=== PATIENT | female | born 1985 | race American Indian/Alaskan Native ===

== ENCOUNTER 2019-02-08 10:49 | Outpatient (CLI) | payer BC, MEDICAID ==
--- NOTE | 2019-02-08 12:07 | Ultrasound Report ---
ULTRASOUND BIOPHYSICAL PROFILE ULTRASOUND BIOPHYSICAL PROFILE ADD GESTATION INDICATION: non-reassuring tracing. Twin gestation. COMPARISON: None available. FINDINGS: FETUS A heart rate is 135 beats per minute. breathing movement = 2 Gross body movement = 2 tone = 2 Qualitative amniotic fluid volume = 2 biophysical profile = 11/11 FETUS B heart rate is 148 beats per minute. breathing movement = 2 Gross body movement = 2 tone = 2 Qualitative amniotic fluid volume = 2 biophysical profile = 11/11 Signer Name: Fer Moss Jr, MD Signed: 02/08/2019 12:03 PM Workstation Name: [id number]
[2019-02-08 12:12] VITALS: BP 135/81
== END 2019-02-08 13:06 | disposition home or self-care (01) ==
LOC: TRG 10:49
PROVIDERS: ATTEND Obstetrics & Gynecology
DX: O36.8330 Maternal care for abnormalities of the fetal heart rate or rhythm, third trimester, not applicable or unspecified (principal); O30.003 Twin pregnancy, unspecified number of placenta and unspecified number of amniotic sacs, third trimester; Z3A.32 32 weeks gestation of pregnancy
CPT/HCPCS: 76819

== ENCOUNTER 2019-02-18 23:23 | Outpatient (CLI) | payer BC, MEDICAID ==
[2019-02-19] MEDS ORDERED: LACTATED RINGERS 500 ML IV ONE (00:25)
[2019-02-19 00:53] LABS: Bacteria,Urine 2+ /HPF (Negative); Bilirubin,Urine NEG (Negative); Blood,Urine NEG (Negative); Color,Urine Yellow (Yellow); Hyaline Casts,Urine 3 /LPF; Protein,Urine <15 mg/dL mg/dL (Negative); Urobilinogen,Urine < 2.0 mg/dL (<2.0)
[2019-02-19 01:07] VITALS: BP 138/64
== END 2019-02-19 01:30 | disposition home or self-care (01) ==
LOC: TRG 23:23
PROVIDERS: ATTEND Obstetrics & Gynecology
DX: O47.03 False labor before 37 completed weeks of gestation, third trimester (principal); O30.003 Twin pregnancy, unspecified number of placenta and unspecified number of amniotic sacs, third trimester; O26.893 Other specified pregnancy related conditions, third trimester; R60.0 Localized edema; Z3A.34 34 weeks gestation of pregnancy
CPT/HCPCS: 59025; 81001; J7120

== ENCOUNTER 2019-03-01 16:21 | Inpatient (IN) | payer BC, MEDICAID ==
[2019-03-01] MEDS ORDERED: ONDANSETRON 4 MG/2 ML INJ IV PRN (16:43)
[2019-03-01] MEDS ORDERED: SODIUM CHLORIDE NASAL SPRAY 44ML NS PRN (16:43)
[2019-03-01] MEDS ORDERED: DOCUSATE SODIUM 100 MG CAP PO PRN (16:43)
[2019-03-01] MEDS ORDERED: ACETAMINOPHEN 325 MG TAB PO PRN (16:43)
--- NOTE | 2019-03-01 16:57 | History and Physical Report ---
History of Present Illness Date of examination: 03/01/19 (Sent from office for 24hr collection) Date of admission: 03/01/2019 Chief complaint: Sent from office History of present illness: EDC Confirmation: 03/30/2019 Gestational Age: 12 5/7 weeks Past History : 2 Living Children: 0 Elect. 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 of genital herpes: yes Rash, Viral, or Febrile illness since last LMP? no Varicella/Chicken Pox Status: Previous Disease Genetic History Congenital Heart Defect: Mom: no Dad: unknown Fareed Disease: Mom: no Dad: unknown Thalassemia Mom: no Dad: unknown Neural Tube Defect Mom: no Dad: unknown Down's Syndrome Mom: no Dad: unknown Eliezer-Sachs Mom: no Dad: unknown Sickle Cell Disease/Trait Mom: yes Dad: unknown Hemophilia Mom: no Dad: unknown Muscular Dystrophy Mom: no Dad: unknown Cystic Fibrosis Mom: no Dad: unknown [place] Chorea Mom: no Dad: unknown Mental Retardation Mom: no Dad: unknown Fragile X Mom: no Dad: unknown Other Genetic/Chromosomal Disorder Mom: no Dad: unknown Child w/other defect Mom: no Dad: unknown Enviromental Exposures Xray Exposure: no Medication, drug, or alcohol use since LMP: no Chemical/Other Exposure: no Exposure to Cat Liter: no Hx of Parvovirus (Fifth Disease): no Occupational Exposure to Children: none Active Medications (reviewed today): PNV () Current Allergies (reviewed today): No known allergies Past History - Obstetrical History Expected Date of Delivery: 03/30/19 Actual Gestation: 35 Week(s) 6 Day(s) : 2 Para: 0 Hx # Term Pregnancies: 0 Number of Pregnancies: 0 Spontaneous Abortions: 0 Induced : 1 Number of Living Children: 0 Medications and Allergies Allergies Allergy/AdvReac Type Severity Reaction Status Date / Time No Known Allergies Allergy Verified 02/08/19 10:54 Home Medications Medication Instructions Recorded Confirmed Last Taken Type Aspirin [Adult Aspirin] 1 tab PO DAILY 02/19/19 02/19/19 02/18/19 History Ferrous Sulfate [Iron 325 MG] 1 tab PO DAILY 02/19/19 02/19/19 02/18/19 History Vit-Fe Fumar-FA [ 1 tab PO DAILY 02/19/19 02/19/19 02/18/19 History Vitamin] Active Meds: Active Medications Acetaminophen (Tylenol) 650 mg PO Q4H PRN PRN Reason: Pain MILD(1-3)/Fever >100.5/BUCK Docusate Sodium (Colace) 100 mg PO Q12H PRN PRN Reason: Constipation Lactated Ringer's (Lactated Ringers) 1,000 mls @ 125 mls/hr IV DIRECT ESTHER Multivitamins/Iron/Calcium ( Vitamin) 1 each PO QDAY ESTHER Ondansetron HCl (Zofran) 4 mg IV Q6H PRN PRN Reason: Nausea And Vomiting Sodium Chloride (Deep Sea) 2 spray NS Q4H PRN PRN Reason: Congestion - Physical Exam Breasts: Positive: deferred Cardiovascular: Regular rate, Normal S1, Normal S2 Lungs: Positive: Normal air movement Abdomen: Positive: normal appearance, soft, normal bowel sounds. Negative: distention, tenderness Genitourinary (Female): Positive: normal external genitalia Vulva: both: normal Vagina: Positive: normal moisture. Negative: discharge Cervix: Negative: lesion, discharge Uterus: Positive: normal size, normal contour Adnexa: both: normal Anus/Rectum: Positive: normal perianal skin, heme negative. Negative: rectal mass, hemorrhoids Extremities: Positive: edema Deep Tendon Reflex Grade: Normal +2 - Obstetrical FHR: auscultation normal Uterine Contraction Pattern: Absent Uterine Tone Measurement Phase: Resting Results All other labs normal. GBS collected today 03/01 HBsAg Screen Negative Negative *1 RPR Non Reactive Non Reactive *2 Rubella Antibodies, IgG 1.87 index Immune >0.99 *3 Non-immune <0.90 Equivocal 0.90 - 0.99 Immune >0.99 ABO Grouping A *4 Rh Factor Positive *5 Please note: Prior records for this patient's ABO / Rh type are not available for additional verification. Antibody Screen Negative Negative *6 WBC [H] 11.3 x10E3/uL 3.4-10.8 *7 RBC 3.87 x10E6/uL 3.77-5.28 *8 Hemoglobin [L] 9.3 g/dL 11.1-15.9 *9 Hematocrit [L] 29.0 % 34.0-46.6 *10 MCV [L] 75 fL 79-97 *11 MCH [L] 24.0 pg 26.6-33.0 *12 MCHC 32.1 g/dL 31.5-35.7 *13 RDW [H] 17.5 % 12.3-15.4 *14 Platelets 303 x10E3/uL 150-450 *15 Neutrophils 80 % Not Estab. *16 Lymphs 15 % Not Estab. *17 Monocytes 5 % Not Estab. *18 Eos 0 % Not Estab. *19 Basos 0 % Not Estab. *20 ! Immature Cells <No Reported Value> *21 Neutrophils (Absolute) [H] 9.0 x10E3/uL 1.4-7.0 *22 Lymphs (Absolute) 1.7 x10E3/uL 0.7-3.1 *23 Monocytes(Absolute) 0.6 x10E3/uL 0.1-0.9 *24 Eos (Absolute) 0.0 x10E3/uL 0.0-0.4 *25 Baso (Absolute) 0.0 x10E3/uL 0.0-0.2 *26 ! Immature Granulocytes 0 % Not Estab. *27 ! Immature Grans (Abs) 0.0 x10E3/uL 0.0-0.1 *28 ! NRBC <No Reported Value> *29 Hematology Comments: <No Reported Value> *30 Tests: (2) Panel 617020 ([id number]) HIV Screen 4th Generation wRfx Non Reactive Non Reactive *31 Tests: (3) HCV Ab w/Rflx to Verification (911125) ! HCV Ab <0.1 s/co ratio 0.0-0.9 *32 Tests: (4) Comment: (191100) ! Comment: SPRCS *33 Non reactive HCV antibody screen is consistent with no HCV infection, unless recent infection is suspected or other evidence exists to indicate HCV infection. Tests: (5) Urine Culture, Routine ([id number]) Urine Culture, Routine Final report *34 Tests: (6) Result ([id number]) ! Result 1 MUG *35 Mixed urogenital edwar 25,000-50,000 colony forming units per mL Assessment and Plan 33 y.o at 35 weeks with Rhoda twins, with elevated BPs, 150/80 in office and in [facility] office, told at visit that babies were vtx/vtx. 24 hour urine collection started, pt is HSV2 +, valtrex started. Will plan BMZ if BPs continue elevated. Dr. Lafleur aware of admission. GBS done in office today. All orders in EMR. - Patient Problems (1) Herpes genitalis Onset Date: ~03/01/19 Current Visit: Yes Status: Acute Qualifiers: Herpes simplex infection site: vulvovaginitis Qualified Code(s): A60.04 - Herpesviral vulvovaginitis Plan to address problem: Will plan to Valacyclovir 1gm today, No obvious outbreaks seen and no symptoms expressed by patient. (2) Elevated blood pressure affecting in third trimester, antepartum Onset Date: ~03/01/19 Current Visit: Yes Status: Acute Plan to address problem: Pt sent from office, [facility] labs ordered, will monitor BPs (3) Dichorionic diamniotic twin in third trimester Onset Date: ~03/01/19 Current Visit: Yes Status: Acute Plan to address problem: Continous monitoring vtx/vtx on today's u/s with [facility].
[2019-03-01] MEDS ORDERED: LACTATED RINGERS 1,000 ML IV SCH (17:00)
[2019-03-01] MEDS: valACYclovir 500 MG TAB PO SCH (18:42)
[2019-03-01 19:10] LABS: Basophils % (Auto) 0.3 % (0.0-1.8); Eosinophils % (Auto) 0.4 % (0.0-4.3); Hematocrit 31.5 % (30.3-42.9); Hemoglobin 10.1 gm/dl (10.1-14.3); Lymphocytes # (Auto) 1.9 K/mm3 (1.2-5.4); Lymphocytes % (Auto) 17.9 % (13.4-35.0); Mean Corpuscular HGB Conc 32 % (30-34); Mean Corpuscular Volume 83 fl (79-97); Monocytes # (Auto) 0.5 K/mm3 (0.0-0.8); Monocytes % (Auto) 4.5 % (0.0-7.3); Platelet Count 211 K/mm3 (140-440); Red Cell Distribution Width 16.8 % (13.2-15.2)
[2019-03-01 19:23] LABS: Alanine Aminotransferase 8 units/L (7-56); Albumin 3.4 g/dL (3.9-5); BUN/Creatinine Ratio 7; Blood Urea Nitrogen 4 mg/dL (7-17); Calcium 9.1 mg/dL (8.4-10.2); Hemolysis Index 2; Uric Acid 6.4 mg/dL (3.5-7.6)
[2019-03-01] MEDS ORDERED: ZOLPIDEM 5 MG TAB PO ONE ×2 (20:22→22:00)
[2019-03-01 21:13] LABS: Bacteria,Urine 1+ /HPF (Negative); Bilirubin,Urine NEG (Negative); Blood,Urine NEG (Negative); Color,Urine Yellow (Yellow); Protein,Urine <15 mg/dL mg/dL (Negative); Urobilinogen,Urine < 2.0 mg/dL (<2.0)
--- NOTE | 2019-03-02 04:28 | Event Note ---
Date: 03/02/19 Pt has had elevated blood pressures since admission and some in the sever range. Will start magnesium sulfate at this time and administer BMZ.
--- NOTE | 2019-03-02 04:36 | Event Note ---
Date: 03/02/19 Spoke with RN that states cuff was changed and the more elevated pressures were prior to changing the cuff. Still advised that bps are still elevated and will start both magnesium and give steroids at this time. She expressed understanding and acknowledged the orders being given.
[2019-03-02] MEDS ORDERED: MAGNESIUM SULFATE 40GM/1000ML 40 GM/1,000 ML BAG IV SCH (05:00)
[2019-03-02] MEDS ORDERED: BETAMET ACET/BETAMET NA PH 6 MG/ML INJ 5 ML MDV IM SCH (05:00)
--- NOTE | 2019-03-02 06:00 | Progress Note ---
Assessment and Plan Pt started on MGSO4 per Dr Lafleur's order BP have been labile with one 160/100. 24 hour urine ongoing Pt c/o pain in vagina Assessment appears to be suprapubic stretching SVE 2,80,-2. Pt anxious @ [facility]. Discussed with her the rationale of accurate urine output She agrees to placement. Will continue POC, follow BPs closely. Consult with . - Patient Problems (1) Herpes genitalis Onset Date: ~03/01/19 Current Visit: Yes Status: Acute Qualifiers: Herpes simplex infection site: vulvovaginitis Qualified Code(s): A60.04 - Herpesviral vulvovaginitis (2) Elevated blood pressure affecting in third trimester, antepartum Onset Date: ~03/01/19 Current Visit: Yes Status: Acute (3) Dichorionic diamniotic twin in third trimester Onset Date: ~03/01/19 Current Visit: Yes Status: Acute Subjective - Subjective Date of service: 03/02/19 (Pt now on MGSO4) Principal diagnosis: IUP Di/Di twins @ 36w0d; 24hr urine in progress, MGSO4 @ 2gm/hr Interval history: EDC Confirmation: 03/30/2019 Gestational Age: 12 5/7 weeks Past History : 2 Living Children: 0 Elect. Ab: 1 Past Medical History: Negative Past Medical History Past Surgical History: Negative Past Surgical History: sickle cell trait Past Medical History Surgery (Non-manager internal): Negative Past Surgical History: sickle cell trait Abnormal PAP: negative DYLAN Exposure: negative Infertility: negative Uterine Anomaly: negative Uterine Surgery (not C/S): negative Other Gynecologic Problems: negative Medical History Comments: neg Family Hx: HTN Kidney dz Social Hx: single foc unsure about his involment Infection History Hx of STD: HSV I/II Partner hx. of genital herpes: yes Rash, Viral, or Febrile illness since last LMP? no Varicella/Chicken Pox Status: Previous Disease Genetic History Congenital Heart Defect: Mom: no Dad: unknown Fareed Disease: Mom: no Dad: unknown Thalassemia Mom: no Dad: unknown Neural Tube Defect Mom: no Dad: unknown Down's Syndrome Mom: no Dad: unknown Eliezer-Sachs Mom: no Dad: unknown Sickle Cell Disease/Trait Mom: yes Dad: unknown Hemophilia Mom: no Dad: unknown Muscular Dystrophy Mom: no Dad: unknown Cystic Fibrosis Mom: no Dad: unknown [place] Chorea Mom: no Dad: unknown Mental Retardation Mom: no Dad: unknown Fragile X Mom: no Dad: unknown Other Genetic/Chromosomal Disorder Mom: no Dad: unknown Child w/other defect Mom: no Dad: unknown Enviromental Exposures Xray Exposure: no Medication, drug, or alcohol use since LMP: no Chemical/Other Exposure: no Exposure to Cat Liter: no Hx of Parvovirus (Fifth Disease): no Occupational Exposure to Children: none Active Medications (reviewed today): PNV () Current Allergies (reviewed today): No known allergies Patient reports: movement normal Objective - Vital Signs Vital Signs: Vital Signs - 12hr 03/01/19 03/01/19 03/01/19 18:32 18:46 19:00 Temperature Pulse Rate 81 88 83 Respiratory Rate Blood Pressure 146/99 156/84 159/85 Blood Pressure [Left] 03/01/19 03/01/19 03/01/19 19:15 19:30 19:31 Temperature 98.2 F Pulse Rate 96 H 85 85 Respiratory 16 Rate Blood Pressure 156/85 177/81 Blood Pressure 177/81 [Left] 03/01/19 03/01/19 03/01/19 20:08 20:39 21:08 Temperature Pulse Rate 84 84 88 Respiratory 16 Rate Blood Pressure 139/91 167/112 139/72 Blood Pressure 139/91 [Left] 03/01/19 03/01/19 03/01/19 21:39 22:10 22:40 Temperature Pulse Rate 101 H 96 H 108 H Respiratory Rate Blood Pressure 149/75 146/86 168/84 Blood Pressure [Left] 03/01/19 03/01/19 03/01/19 23:09 23:39 23:44 Temperature Pulse Rate 96 H 99 H 105 H Respiratory Rate Blood Pressure 132/78 159/85 139/66 Blood Pressure [Left] 03/01/19 03/02/19 03/02/19 23:45 00:08 00:38 Temperature Pulse Rate 100 H 102 H 100 H Respiratory 16 16 Rate Blood Pressure 137/84 144/75 Blood Pressure 139/66 144/75 [Left] 03/02/19 03/02/19 03/02/19 03:35 04:44 05:49 Temperature 98.2 F Pulse Rate 114 H 88 Respiratory 16 16 16 Rate Blood Pressure 144/70 136/72 Blood Pressure 144/70 136/72 [Left] - Exam Breasts: deferred Cardiovascular: Regular rate Lungs: Normal air movement Abdomen: Present: normal appearance, soft, normal bowel sounds. Absent: distention, tenderness Vulva: both: normal (pain pt is c/o appears to be pubic stretching) Uterus: Present: normal FHR: auscultation normal, category 1 Uterine Contraction Monitor Mode: External Cervical Dilatation: 2 Cervical Effacement Percentage: 80 station: -2 Uterine Contraction Pattern: Irregular Uterine Tone Measurement Phase: Resting Uterine Contraction Intensity: Mild Extremities: edema Deep Tendon Reflex Grade: Normal but brisk +3 - Labs Labs: Abnormal Labs 03/01/19 03/01/19 18:32 18:32 MCH 27 L RDW 16.8 H Seg Neutrophils % 76.9 H Seg Neutrophils # 8.2 H Carbon Dioxide 16 L BUN 4 L Creatinine 0.6 L Alkaline Phosphatase 150 H Lactate Dehydrogenase 308 H Albumin 3.4 L Laboratory Results - last 24 hr 03/01/19 03/01/19 03/01/19 18:32 18:32 18:36 WBC 10.6 RBC 3.80 Hgb 10.1 Hct 31.5 MCV 83 MCH 27 L MCHC 32 RDW 16.8 H Plt Count 211 Lymph % (Auto) 17.9 [place] % (Auto) 4.5 Eos % (Auto) 0.4 Baso % (Auto) 0.3 Lymph # 1.9 [place] # 0.5 Eos # 0.0 Baso # 0.0 Seg Neutrophils % 76.9 H Seg Neutrophils # 8.2 H Sodium 141 Potassium 3.8 Chloride 106.5 Carbon Dioxide 16 L Anion Gap 22 BUN 4 L Creatinine 0.6 L Estimated GFR > 60 BUN/Creatinine Ratio 7 Glucose 73 Uric Acid 6.4 Calcium 9.1 Total Bilirubin 0.70 AST 22 ALT 8 Alkaline Phosphatase 150 H Lactate Dehydrogenase 308 H Total Protein 6.8 Albumin 3.4 L Albumin/Globulin Ratio 1.0 Urine Color Urine Turbidity Urine pH Ur Specific [place] Urine Protein Urine Glucose (UA) Urine Ketones Urine Blood Urine Nitrite Urine Bilirubin Urine Urobilinogen Ur Leukocyte Esterase Urine WBC (Auto) Urine RBC (Auto) U Epithel Cells (Auto) Urine Bacteria (Auto) Blood Type A POSITIVE Antibody Screen Negative 03/01/19 20:30 WBC RBC Hgb Hct MCV MCH MCHC RDW Plt Count Lymph % (Auto) [place] % (Auto) Eos % (Auto) Baso % (Auto) Lymph # [place] # Eos # Baso # Seg Neutrophils % Seg Neutrophils # Sodium Potassium Chloride Carbon Dioxide Anion Gap BUN Creatinine Estimated GFR BUN/Creatinine Ratio Glucose Uric Acid Calcium Total Bilirubin AST ALT Alkaline Phosphatase Lactate Dehydrogenase Total Protein Albumin Albumin/Globulin Ratio Urine Color Yellow Urine Turbidity Clear Urine pH 6.0 Ur Specific [place] 1.006 Urine Protein <15 mg/dl Urine Glucose (UA) Neg Urine Ketones 20 Urine Blood Neg Urine Nitrite Neg Urine Bilirubin Neg Urine Urobilinogen < 2.0 Ur Leukocyte Esterase Sm Urine WBC (Auto) 4.0 Urine RBC (Auto) 3.0 U Epithel Cells (Auto) 2.0 Urine Bacteria (Auto) 1+ Blood Type Antibody Screen
[2019-03-02] MEDS ORDERED: ACETAMINOPHEN 325 MG TAB PO PRN (07:49)
--- NOTE | 2019-03-02 07:58 | Progress Note ---
Assessment and Plan - Patient Problems (1) 36 weeks gestation of Current Visit: Yes Status: Acute (2) Preeclampsia, severe Current Visit: Yes Status: Acute Qualifiers: Trimester: third trimester Qualified Code(s): O14.13 - Severe pre- eclampsia, third trimester Plan to address problem: Patient states she was diagnosed with preeclampsia last week, now with two elevated BP in severe range >4 hours apart. Therefore will proceed with induction for Preeclampsia with severe features. Diagnosis discussed with patient, plan for induction explained. She's aware she may require emergent/urgent c/s if second baby becomes malpresented not conducive to vaginal delivery. Questions encouraged and answered, she voiced understanding and agrees with plan of care. nurse ortho aware (3) BMI 45.0-49.9, adult Current Visit: Yes Status: Chronic (4) Dichorionic diamniotic twin in third trimester Onset Date: ~03/01/19 Current Visit: Yes Status: Acute (5) Herpes genitalis Onset Date: ~03/01/19 Current Visit: Yes Status: Acute Qualifiers: Herpes simplex infection site: vulvovaginitis Qualified Code(s): A60.04 - Herpesviral vulvovaginitis Plan to address problem: Patient denies recent outbreak or prodromal symptoms. No lesions on or near perineal per CNM, will proceed with IOL Subjective - Subjective Date of service: 03/02/19 Principal diagnosis: IUP Di/Di twins @ 36w0d; MGSO4 @ 2gm/hr Interval history: resting in bed, no complaints Patient reports: movement normal, no new complaints Objective - Vital Signs Vital Signs: Vital Signs - 12hr 03/01/19 03/01/19 03/01/19 20:08 20:39 21:08 Temperature Pulse Rate 84 84 88 Respiratory 16 Rate Blood Pressure 139/91 167/112 139/72 Blood Pressure 139/91 [Left] 03/01/19 03/01/19 03/01/19 21:39 22:10 22:40 Temperature Pulse Rate 101 H 96 H 108 H Respiratory Rate Blood Pressure 149/75 146/86 168/84 Blood Pressure [Left] 03/01/19 03/01/19 03/01/19 23:09 23:39 23:44 Temperature Pulse Rate 96 H 99 H 105 H Respiratory Rate Blood Pressure 132/78 159/85 139/66 Blood Pressure [Left] 03/01/19 03/02/19 03/02/19 23:45 00:08 00:38 Temperature Pulse Rate 100 H 102 H 100 H Respiratory 16 16 Rate Blood Pressure 137/84 144/75 Blood Pressure 139/66 144/75 [Left] 03/02/19 03/02/19 03/02/19 03:35 04:44 05:49 Temperature 98.2 F Pulse Rate 114 H 88 Respiratory 16 16 16 Rate Blood Pressure 144/70 136/72 Blood Pressure 144/70 136/72 [Left] - Exam Breasts: deferred Cardiovascular: Regular rate Lungs: Clear to auscultation, Normal air movement Abdomen: Present: other (obese). Absent: tenderness Uterus: Present: fundal height above umbilicus. Absent: tenderness FHR: category 1 (x2) Uterine Contraction Monitor Mode: External Cervical Dilatation: 2 Cervical Effacement Percentage: 80 station: -2, per CNM, no lesions report Uterine Contraction Pattern: Absent Extremities: edema (2+) Deep Tendon Reflex Grade: Normal +2 - Labs Labs: Abnormal Labs 03/01/19 03/01/19 18:32 18:32 MCH 27 L RDW 16.8 H Seg Neutrophils % 76.9 H Seg Neutrophils # 8.2 H Carbon Dioxide 16 L BUN 4 L Creatinine 0.6 L Alkaline Phosphatase 150 H Lactate Dehydrogenase 308 H Albumin 3.4 L Laboratory Results - last 24 hr 03/01/19 03/01/19 03/01/19 18:32 18:32 18:36 WBC 10.6 RBC 3.80 Hgb 10.1 Hct 31.5 MCV 83 MCH 27 L MCHC 32 RDW 16.8 H Plt Count 211 Lymph % (Auto) 17.9 [place] % (Auto) 4.5 Eos % (Auto) 0.4 Baso % (Auto) 0.3 Lymph # 1.9 [place] # 0.5 Eos # 0.0 Baso # 0.0 Seg Neutrophils % 76.9 H Seg Neutrophils # 8.2 H Sodium 141 Potassium 3.8 Chloride 106.5 Carbon Dioxide 16 L Anion Gap 22 BUN 4 L Creatinine 0.6 L Estimated GFR > 60 BUN/Creatinine Ratio 7 Glucose 73 Uric Acid 6.4 Calcium 9.1 Total Bilirubin 0.70 AST 22 ALT 8 Alkaline Phosphatase 150 H Lactate Dehydrogenase 308 H Total Protein 6.8 Albumin 3.4 L Albumin/Globulin Ratio 1.0 Urine Color Urine Turbidity Urine pH Ur Specific [place] Urine Protein Urine Glucose (UA) Urine Ketones Urine Blood Urine Nitrite Urine Bilirubin Urine Urobilinogen Ur Leukocyte Esterase Urine WBC (Auto) Urine RBC (Auto) U Epithel Cells (Auto) Urine Bacteria (Auto) Blood Type A POSITIVE Antibody Screen Negative 03/01/19 20:30 WBC RBC Hgb Hct MCV MCH MCHC RDW Plt Count Lymph % (Auto) [place] % (Auto) Eos % (Auto) Baso % (Auto) Lymph # [place] # Eos # Baso # Seg Neutrophils % Seg Neutrophils # Sodium Potassium Chloride Carbon Dioxide Anion Gap BUN Creatinine Estimated GFR BUN/Creatinine Ratio Glucose Uric Acid Calcium Total Bilirubin AST ALT Alkaline Phosphatase Lactate Dehydrogenase Total Protein Albumin Albumin/Globulin Ratio Urine Color Yellow Urine Turbidity Clear Urine pH 6.0 Ur Specific [place] 1.006 Urine Protein <15 mg/dl Urine Glucose (UA) Neg Urine Ketones 20 Urine Blood Neg Urine Nitrite Neg Urine Bilirubin Neg Urine Urobilinogen < 2.0 Ur Leukocyte Esterase Sm Urine WBC (Auto) 4.0 Urine RBC (Auto) 3.0 U Epithel Cells (Auto) 2.0 Urine Bacteria (Auto) 1+ Blood Type Antibody Screen
[2019-03-02] MEDS ORDERED: LACTATED RINGERS 1,000 ML IV SCH ×3 (08:00→15:00)
[2019-03-02] MEDS ORDERED: OXYTOCIN DRIP 30 UNITS/500 ML BAG IV SCH (08:00)
[2019-03-02] MEDS ORDERED: TERBUTALINE 1 MG/1 ML INJ SUB-Q PRN (08:06)
[2019-03-02] MEDS ORDERED: TERBUTALINE 1 MG/1 ML INJ IVP PRN (08:06)
[2019-03-02] MEDS ORDERED: BUTORPHANOL 2 MG/1 ML INJ IV PRN (08:06)
[2019-03-02] MEDS ORDERED: ePHEDrine SULFATE 50 MG/1 ML INJ IV PRN (08:06)
[2019-03-02] MEDS ORDERED: AMPICILLIN/NS 2 GM/100 ML 2 GM/100 ML BAG IV ONE (08:06)
[2019-03-02] MEDS ORDERED: OXYTOCIN 20 UNIT/1000ML DRIP 20 UNITS/1,000 ML BAG IV SCH ×3 (09:00→17:00)
[2019-03-02] MEDS ORDERED: LIDOCAINE (2%) 20 MG/1 ML VIAL 20 ML MDV INFILTRATI ONE (09:30)
[2019-03-02] MEDS ORDERED: ASPIRIN 81 MG TAB CHEW PO SCH (10:00)
[2019-03-02] MEDS: PRENATAL VIT27-FE FUMARATE-FOLIC ACID VIT TAB PO SCH (10:06)
--- NOTE | 2019-03-02 12:03 | Event Note ---
Date: 03/02/19 US reviewed, Twin B transverse spine anterior, patient states Twin B was in this same position when she had an US prior to this the one performed yesterday. Again discussed malpresentation of Twin B and concern for ?cord prolapse or failure to descend or breech presentation with possible head entrapment with delivery. C/S with risks of bleeding, infection, injury to bowel/bladder and possible need for c/s with all subsequent deliveries explained. She voiced understanding and desires to proceed with c/s. Consents reviewed and signed.
[2019-03-02] MEDS: valACYclovir 500 MG TAB PO SCH (12:35)
--- NOTE | 2019-03-02 12:39 | Ultrasound Report ---
ULTRASOUND OBSTETRIC LIMITED INDICATION / CLINICAL INFORMATION: twins, preeclampsia, presentation. TECHNIQUE: Transabdominal ultrasound imaging. COMPARISON: None available. FINDINGS: Baby A is in cephalic position with heart rate measuring 151 bpm. Baby B is in transverse position with head to maternal left and heart rate measuring 161 bpm. The spi ne is positioned anteriorly. IMPRESSION: Twin presentation as described. Signer Name: Fer Moss Jr, MD Signed: 03/02/2019 12:35 PM Workstation Name: [id number]
[2019-03-02] MEDS: AMPICILLIN/NS 1 GM/50 ML 1 GM/50 ML BAG IV SCH ×2 (12:52→13:46)
[2019-03-02] MEDS ORDERED: hydrALAZINE 20 MG/1 ML INJ IV PRN (13:36)
[2019-03-02] MEDS ORDERED: BICITRA ORAL LIQD 30ML PO SCH (14:42)
[2019-03-02] MEDS ORDERED: FAMOTIDINE 20 MG/2 ML INJ IV ONE (14:42)
[2019-03-02] MEDS ORDERED: ONDANSETRON 4 MG/2 ML INJ ONE (15:30)
[2019-03-02] MEDS ORDERED: KETOROLAC 30 MG/1 ML INJ ONE (15:30)
[2019-03-02] MEDS ORDERED: PHENYLEPHRINE/NS 1,000 MCG/10 ML SYRINGE (OR USE) IV ONE (15:30)
--- NOTE | 2019-03-02 15:35 | Anesthesia Day of Surgery ---
Anesthesia Day of Surgery - Day of Surgery Patient Examined: Yes Patient H&P Reviewed: Yes Patient is NPO: Yes
--- NOTE | 2019-03-02 15:35 | Anesthesia Consultation ---
Anesthesia Consult and Med Hx Date of service: 03/02/19 - Airway Anesthetic Teeth Evaluation: Good ROM Head & Neck: Adequate Mental/Hyoid Distance: Adequate Mallampati Class: Class II Intubation Access Assessment: Probably Good - Pulmonary Exam CTA: Yes - Cardiac Exam Cardiac Exam: RRR - Pre-Operative Health Status ASA Pre-Surgery Classification: ASA3 Proposed Anesthetic Plan: Spinal - Pulmonary Hx Asthma: No COPD: No Hx Pneumonia: No - Cardiovascular System Hx Hypertension: Yes (GHTN) - Central Nervous System Hx Seizures: No Hx Psychiatric Problems: No - Endocrine Hx Renal Disease: No Hx End Stage Renal Disease: No Hx Hypothyroidism: No Hx Hyperthyroidism: No - Hematic Hx Anemia: Yes (current ) Hx Sickle Cell Disease: No (has trait) - Other Systems Hx Alcohol Use: Yes (occas social) Hx Obesity: Yes
[2019-03-02] MEDS ORDERED: SODIUM CHLORIDE 0.9% IRR 1,500 ML BOTTLE IR ONE (15:39)
[2019-03-02] MEDS ORDERED: WATER FOR IRRIG STERILE 1,500 ML BOTTLE IR ONE (15:39)
[2019-03-02] MEDS ORDERED: METOCLOPRAMIDE 10 MG/2 ML INJ IV ONE (15:42)
[2019-03-02] MEDS ORDERED: CARBOPROST TROMETHAMINE 250 MCG/1 ML INJ IM ONE (16:15)
[2019-03-02] MEDS ORDERED: MORPHINE 2 MG/1 ML INJ IV PRN (16:50)
[2019-03-02] MEDS ORDERED: NALOXONE 0.4 MG/1 ML INJ IV PRN (16:50)
[2019-03-02] MEDS ORDERED: WITCH HAZEL/ GLYCERIN PAD TP PRN (16:50)
[2019-03-02] MEDS ORDERED: oxyCODONE /ACETAMINOPHEN 5-325MG TAB PO PRN (16:50)
[2019-03-02] MEDS ORDERED: LANOLIN/ZINC/DIMETHICONE (LANSINOH) 7 GM TP PRN (16:50)
[2019-03-02] MEDS ORDERED: MAGNESIUM HYDROXIDE (MOM) ORAL LIQD UDC PO PRN (16:50)
[2019-03-02] MEDS ORDERED: MORPHINE 4 MG/1 ML INJ IV PRN (16:50)
[2019-03-02] MEDS ORDERED: D5W/LACTATED RINGERS 1,000 ML IV SCH (17:00)
[2019-03-02 17:06] LABS: Hematocrit 27.2 % (30.3-42.9); Hemoglobin 8.6 gm/dl (10.1-14.3); Mean Corpuscular HGB Conc 32 % (30-34); Mean Corpuscular Volume 83 fl (79-97); Platelet Count 205 K/mm3 (140-440); Red Blood Count 3.26 M/mm3 (3.65-5.03); Red Cell Distribution Width 16.5 % (13.2-15.2)
--- NOTE | 2019-03-02 17:14 | Post Anesthesia Evaluation ---
- Post Anesthesia Evaluation Patient Participated: Yes Airway Patent: Yes Stable Respiratory Function: Yes Nausea/Vomiting: No Temp > 96.8F: Yes Pain Manageable: Yes Adequeate Hydration: Yes Anesthesia Complications: No Block Receding Appropriately: Yes
[2019-03-02] MEDS ORDERED: SODIUM CHLORIDE 0.9% 500 ML 500 ML ONE (17:18)
[2019-03-02] MEDS ORDERED: SODIUM CHLORIDE 0.9% 1000 ML 1,000 ML ONE (17:19)
--- NOTE | 2019-03-02 19:02 | Event Note ---
Date: 03/02/19 patient w/o complaints, she alert and appropriately responsive. She recv'd [place]i PRBC d/t hypotension intraoperative, with sl tachycardia. Hgb recv'd after PRBC transfusion. She's aware of concerns and plan of care and voiced agreement w/ POC
--- NOTE | 2019-03-02 19:56 | Operative Report ---
PREOPERATIVE DIAGNOSES: 1. Intrauterine at 36 weeks. 2. Twin gestation. 3. Severe preeclampsia. 4. Malpresentation, twin B. 5. Body mass index of 48.6 kilograms per meter square. 6. History of herpes simplex virus 2. POSTOPERATIVE DIAGNOSES: 1. Intrauterine at 36 weeks. 2. Twin gestation. 3. Severe preeclampsia. 4. Malpresentation, twin B. 5. Body mass index of 48.6 kilograms per meter square. 6. History of herpes simplex virus 2. PROCEDURE: Primary low transverse delivery. SURGEON: Sonal Jeffries MD. REGULATORY AFFAIRS ASSOCIATE: Maddie Beckham. ANESTHESIA: Spinal. COMPLICATIONS: None. ESTIMATED BLOOD LOSS: 1500 mL. ANESTHESIOLOGIST: Dr. Nunez. DESCRIPTION OF PROCEDURE: After risks, benefits, complications, consequence and alternatives for this procedure were discussed with the patient who voiced understanding and desired to proceed. She was taken to the OR where spinal anesthesia was placed. She was placed in the left lateral tilt position and prepped and draped in the usual sterile fashion. A timeout was performed and appropriate level of anesthesia was noted and a Pfannenstiel incision was made and extended to the fascia, which was incised and extended to the lateral direction. The overlying fascia was sharply dissected away from the underlying rectus muscles in superior inferior direction. Midline was entered bluntly. The vesicouterine fold was incised with blunt dissection. The bladder flap was created. The Peter retractor was placed. The bladder blade was placed and a transverse incision was made in the lower uterine segment and extended in superolateral direction with finger fractionation. Clear fluid was noted. The was delivered from cephalic position with spontaneous cry and excellent tone. Mouth and nose were bulb suctioned. Cord was doubly clamped and cut and was given to the resuscitation team present. The amniotic sac of twin B was ruptured with clear fluid noted. Infant was delivered from the double footling breech position with spontaneous cry and excellent tone. Mouth and nose were bulb suctioned. was given to the resuscitation team present. Of note, had a true knot in the cord that was loose. After the infant was given to the resuscitation team present, placenta was manually extracted. The uterus was exteriorized and cleaned of any further products of conception or placental tissue. The incision was reapproximated using 0 Vicryl in a running interlocking stitch. Once hemostasis was noted, further suture of 0 Vicryl was placed in an imbricating fashion for hemostasis. Also, a stitch of 3-0 Vicryl was placed to ensure hemostasis. Once hemostasis was noted, the uterus was allowed back into the pelvic cavity. The pelvis was irrigated with warm normal saline. Surgicel was placed to ensure hemostasis. Interceed was placed to decrease adhesion formation. Once hemostasis was noted, the rectus muscles were reapproximated using 0 Vicryl in an interrupted simple stitch x 3. Once hemostasis was noted, the fascia was reapproximated using 0 Vicryl in a simple running stitch. Once hemostasis was noted, subcutaneous adipose tissue was reapproximated using 0 Vicryl in an interrupted fashion x 3 and the skin was reapproximated using 4-0 Vicryl and a Jamel needle in subcuticular manner. The patient tolerated the procedure well. Counts were correct. She was taken to recovery room in stable condition. FINDINGS: Liveborn twin A Liveborn male infant, weight 5 pounds 15 ounces, Apgars 8 and 9. Twin B Liveborn male , weight 5 pounds 7 ounces, Apgars 8 and 9. Grossly normal tubes and ovaries. The patient was noted to have an approximately 7 cm posterior right subserosal fibroid as well as an approximately 5 cm posterior left fundal subserosal fibroid. She was also noted to have an approximately 5 cm fibroid in the left lower broad ligament. The patient was made aware of fibroids. During her procedure, she had hypotension and at which point 1 unit of packed red blood cells was ordered and given. [facility]# [id number] KARUNAR/CHAVO
[2019-03-02] MEDS ORDERED: LACTATED RINGERS 1,000 ML ONE (21:36)
[2019-03-02] MEDS ORDERED: MINERAL OIL 30 ML ORAL LIQD PO PRN (22:00)
[2019-03-02] MEDS: KETOROLAC 30 MG/1 ML INJ IV SCH (22:31)
[2019-03-03] MEDS: KETOROLAC 30 MG/1 ML INJ IV SCH ×3 (04:39→18:28)
[2019-03-03 06:31] LABS: Hematocrit 26.2 % (30.3-42.9); Hemoglobin 8.5 gm/dl (10.1-14.3)
[2019-03-03] MEDS ORDERED: LACTATED RINGERS 1,000 ML ONE (09:41)
--- NOTE | 2019-03-03 10:28 | Progress Note ---
Assessment and Plan - Patient Problems (1) delivery delivered Status: Acute Plan to address problem: Doing well Postoperative day #1. Patient without nausea vomiting. Patient tolerating advancing diet well Patient without fever. Will ambulate in halls. We will continue routine postoperative care. Infant is doing well. Will continue routine post operative care. Patient's postoperative hematocrit is 26.2% (2) Preeclampsia, severe Status: Acute Qualifiers: Trimester: third trimester Qualified Code(s): O14.13 - Severe pre- eclampsia, third trimester Plan to address problem: Blood pressures acceptable will continue MgSO4 for 24 hrs (3) BMI 45.0-49.9, adult Status: Chronic Subjective - Subjective Date of service: 03/03/19 Principal diagnosis: IUP Di/Di twins @ 36w0d; MGSO4 @ 2gm/hr POD#1 Patient reports: appetite normal, pain well controlled, no nauseated : in NICU Objective - Vital Signs Latest vital signs: Vital Signs Temp Pulse Resp BP Pulse Ox 03/03/19 10:26 89 98 03/03/19 10:25 90 147/67 03/03/19 10:21 90 95 03/03/19 10:16 91 H 96 03/03/19 10:11 91 H 96 03/03/19 10:10 88 94 03/03/19 10:06 89 95 03/03/19 10:01 85 96 03/03/19 09:56 89 98 03/03/19 09:55 84 145/69 03/03/19 09:52 91 H 145/70 03/03/19 09:51 99 H 96 03/03/19 09:48 92 H 94 03/03/19 09:46 88 96 03/03/19 09:41 93 H 96 03/03/19 09:36 92 H 97 03/03/19 09:31 90 96 03/03/19 09:26 86 171/79 96 03/03/19 09:21 94 H 97 03/03/19 09:16 88 98 03/03/19 09:11 88 98 03/03/19 09:06 88 97 03/03/19 09:01 93 H 98 03/03/19 08:56 96 H 154/76 98 03/03/19 08:54 84 93 03/03/19 08:51 94 H 96 03/03/19 08:46 96 H 96 03/03/19 08:41 98 H 98 03/03/19 08:38 97.6 F 20 03/03/19 08:36 102 H 97 03/03/19 08:31 117 H 98 03/03/19 08:26 92 H 97 03/03/19 08:25 93 H 151/73 03/03/19 08:21 96 H 98 03/03/19 08:16 95 H 98 03/03/19 08:11 113 H 98 03/03/19 08:06 100 H 99 03/03/19 08:01 94 H 97 03/03/19 07:56 111 H 98 03/03/19 07:55 90 136/79 03/03/19 07:51 92 H 95 03/03/19 07:46 91 H 97 03/03/19 07:41 90 98 03/03/19 07:36 98 H 99 03/03/19 07:34 94 H 137/67 03/03/19 07:31 94 H 98 03/03/19 07:30 95 H 161/75 03/03/19 07:26 95 H 98 03/03/19 07:21 89 99 03/03/19 07:16 94 H 96 03/03/19 07:11 94 H 97 03/03/19 07:06 94 H 98 03/03/19 07:01 91 H 98 03/03/19 06:56 94 H 124/78 99 03/03/19 06:51 101 H 97 03/03/19 06:46 109 H 98 03/03/19 06:41 93 H 98 03/03/19 06:36 101 H 98 03/03/19 06:31 104 H 98 03/03/19 06:26 106 H 98 03/03/19 06:21 94 H 97 03/03/19 06:16 95 H 99 03/03/19 06:11 102 H 98 03/03/19 06:06 94 H 96 03/03/19 06:01 95 H 97 03/03/19 05:56 98 H 99 03/03/19 05:55 87 133/64 03/03/19 05:51 89 96 03/03/19 05:46 89 96 03/03/19 05:41 91 H 97 03/03/19 05:36 91 H 96 03/03/19 05:31 90 97 03/03/19 05:26 95 H 97 03/03/19 05:25 88 133/70 03/03/19 05:21 90 97 03/03/19 05:16 90 97 03/03/19 05:11 95 H 97 03/03/19 05:06 92 H 97 03/03/19 05:01 90 97 03/03/19 04:56 90 98 03/03/19 04:55 99 H 121/83 03/03/19 04:51 94 H 99 03/03/19 04:46 97 H 97 03/03/19 04:41 91 H 98 03/03/19 04:36 97 H 99 03/03/19 04:31 103 H 97 03/03/19 04:26 99 H 98 03/03/19 04:25 100 H 145/81 03/03/19 04:21 110 H 97 03/03/19 04:16 100 H 97 03/03/19 04:11 105 H 98 03/03/19 04:06 101 H 98 03/03/19 04:01 107 H 98 03/03/19 03:56 111 H 175/109 97 03/03/19 03:51 99 H 98 03/03/19 03:46 97 H 98 03/03/19 03:41 94 H 98 03/03/19 03:36 109 H 98 03/03/19 03:31 99 H 98 03/03/19 03:26 98 H 151/71 99 03/03/19 03:21 94 H 98 03/03/19 03:16 98 H 99 03/03/19 03:11 107 H 98 03/03/19 03:06 102 H 99 03/03/19 03:01 101 H 97 03/03/19 02:56 100 H 99 03/03/19 02:55 96 H 136/82 03/03/19 02:51 103 H 98 03/03/19 02:46 109 H 98 03/03/19 02:41 94 H 99 03/03/19 02:36 99 H 98 03/03/19 02:31 105 H 98 03/03/19 02:26 115 H 98 03/03/19 02:25 93 H 154/77 03/03/19 02:21 91 H 98 03/03/19 02:16 104 H 98 03/03/19 02:11 103 H 98 03/03/19 02:06 99 H 99 03/03/19 02:01 96 H 98 03/03/19 01:56 97 H 99 03/03/19 01:55 98 H 135/73 03/03/19 01:51 97 H 98 03/03/19 01:46 120 H 100 03/03/19 01:41 100 H 97 03/03/19 01:36 98 H 97 03/03/19 01:31 100 H 98 03/03/19 01:26 112 H 99 03/03/19 01:21 98 H 100 03/03/19 01:16 99 H 99 03/03/19 01:11 101 H 98 03/03/19 01:06 105 H 99 03/03/19 01:01 108 H 99 03/03/19 00:56 103 H 99 03/03/19 00:55 102 H 160/84 03/03/19 00:51 112 H 99 03/03/19 00:46 123 H 99 03/03/19 00:41 109 H 99 03/03/19 00:36 109 H 99 03/03/19 00:31 106 H 99 03/03/19 00:26 113 H 99 03/03/19 00:25 111 H 145/70 03/03/19 00:21 120 H 98 03/03/19 00:16 129 H 98 03/03/19 00:11 111 H 98 03/03/19 00:10 18 03/03/19 00:06 109 H 98 03/03/19 00:01 107 H 97 03/02/19 23:56 101 H 99 03/02/19 23:55 108 H 127/62 03/02/19 23:51 106 H 97 03/02/19 23:46 105 H 97 03/02/19 23:41 115 H 98 03/02/19 23:36 105 H 98 03/02/19 23:31 113 H 98 03/02/19 23:26 104 H 97 03/02/19 23:25 95 H 136/74 03/02/19 23:21 103 H 98 03/02/19 23:16 105 H 97 03/02/19 23:11 104 H 97 03/02/19 23:06 107 H 99 03/02/19 23:01 111 H 100 03/02/19 22:56 107 H 97 03/02/19 22:55 99 H 140/68 03/02/19 22:51 104 H 99 03/02/19 22:46 93 H 99 03/02/19 22:41 97 H 99 03/02/19 22:36 98 H 99 03/02/19 22:31 101 H 98 03/02/19 22:26 96 H 99 03/02/19 22:25 98 H 137/68 03/02/19 22:21 100 H 99 03/02/19 22:16 101 H 99 03/02/19 22:11 99 H 98 03/02/19 22:06 103 H 98 03/02/19 22:01 110 H 98 03/02/19 21:56 117 H 98 03/02/19 21:55 95 H 137/67 03/02/19 21:51 96 H 96 03/02/19 21:46 97 H 99 03/02/19 21:41 90 98 03/02/19 21:36 98 H 98 03/02/19 21:31 91 H 99 03/02/19 21:26 98 H 98 03/02/19 21:25 104 H 134/69 03/02/19 21:21 97 H 98 03/02/19 21:16 101 H 98 03/02/19 21:11 110 H 98 03/02/19 21:06 99 H 98 03/02/19 21:01 105 H 97 03/02/19 20:56 94 H 97 03/02/19 20:55 89 137/66 03/02/19 20:51 94 H 98 03/02/19 20:46 90 99 03/02/19 20:41 101 H 99 03/02/19 20:36 97 H 99 03/02/19 20:31 96 H 99 03/02/19 20:26 95 H 98 03/02/19 20:25 93 H 128/77 03/02/19 20:21 107 H 98 03/02/19 20:19 109 H 89 03/02/19 20:16 94 H 99 03/02/19 20:11 91 H 99 03/02/19 20:06 91 H 98 03/02/19 20:01 86 99 03/02/19 19:56 92 H 157/99 99 03/02/19 19:51 94 H 99 03/02/19 19:46 97 H 99 03/02/19 19:41 89 100 03/02/19 19:36 107 H 99 03/02/19 19:31 93 H 99 03/02/19 19:26 87 99 03/02/19 19:21 89 100 03/02/19 19:16 96 H 96 03/02/19 19:11 92 H 99 03/02/19 19:06 82 100 03/02/19 19:01 88 99 03/02/19 18:56 93 H 100 03/02/19 18:51 90 97 03/02/19 18:48 90 119/67 03/02/19 18:30 98.3 F 91 H 24 110/59 96 03/02/19 18:15 98.2 F 82 21 107/50 97 03/02/19 18:00 98.2 F 90 11 L 97/52 97 03/02/19 17:55 98.3 F 89 14 90/52 98 03/02/19 17:50 98.4 F 86 16 100/42 98 03/02/19 17:46 98.4 F 88 16 90/42 98 03/02/19 17:37 98.4 F 88 16 99/27 98 03/02/19 17:35 88 16 99/27 98 03/02/19 17:20 98.4 F 82 18 89/41 97 03/02/19 17:15 88 20 85/32 96 03/02/19 17:10 86 22 93/42 99 03/02/19 17:07 98.6 F 88 17 80/32 97 03/02/19 15:29 109 H 150/101 100 03/02/19 15:24 107 H 100 03/02/19 15:19 109 H 100 03/02/19 15:16 106 H 147/80 03/02/19 15:14 109 H 100 03/02/19 15:09 108 H 100 03/02/19 15:04 106 H 100 03/02/19 14:59 107 H 142/101 100 03/02/19 14:54 119 H 100 03/02/19 14:49 110 H 100 03/02/19 14:44 117 H 100 03/02/19 14:43 112 H 151/78 03/02/19 14:39 104 H 100 03/02/19 14:34 102 H 100 03/02/19 14:29 107 H 162/82 100 03/02/19 14:24 104 H 100 03/02/19 14:19 95 H 100 03/02/19 14:15 97 H 150/81 03/02/19 14:14 104 H 100 03/02/19 14:09 100 H 100 03/02/19 14:04 103 H 100 03/02/19 14:02 101 H 164/74 03/02/19 13:59 95 H 194/92 0 L 03/02/19 13:54 104 H 100 03/02/19 13:49 111 H 99 03/02/19 13:47 99 H 173/96 03/02/19 13:44 85 99 03/02/19 13:39 87 100 03/02/19 13:34 84 98 03/02/19 13:29 89 98 03/02/19 13:24 95 H 173/96 99 03/02/19 13:19 88 99 03/02/19 13:14 90 98 03/02/19 13:09 111 H 98 03/02/19 13:04 86 98 03/02/19 12:59 98 H 98 03/02/19 12:54 85 99 03/02/19 12:49 95 H 99 03/02/19 12:44 89 98 03/02/19 12:39 90 99 03/02/19 12:34 89 100 03/02/19 12:29 86 98 03/02/19 12:25 89 167/77 03/02/19 12:24 89 88 03/02/19 11:23 93 H 148/84 Intake and Output 03/02/19 03/03/19 03/03/19 22:59 06:59 14:59 Intake Total 3550 600 Output Total 850 2800 1350 Balance 2700 -2200 -1350 Intake: IV 2200 Oral 600 Blood Product 650 Leukoreduced Red Blood 250 Cells Unit [id number] Other 700 Leukoreduced Red Blood 700 Cells Unit [id number] Output: Urine 850 2800 1350 Indwelling Catheter 600 2800 1350 Other: Total, Intake Amount 600 Total, Output Amount 300 2800 1000 Estimated Blood Loss 1,500 - Exam Breasts: Present: deferred Cardiovascular: Present: Regular rate Lungs: Present: Normal air movement Abdomen: Present: normal appearance, soft, tenderness (Appropriate post-op) Uterus: Present: firm, fundal height at umbilicus Extremities: Present: edema Incision: Present: dry, dressed - Labs Labs: Abnormal lab results 03/02/19 03/02/19 03/02/19 Range/Units 12:24 16:51 16:54 WBC 11.2 H (4.5-11.0) K/mm3 RBC 3.26 L (3.65-5.03) M/mm3 Hgb 8.6 L (10.1-14.3) gm/dl Hct 27.2 L (30.3-42.9) % MCH 26 L (28-32) pg RDW 16.5 H (13.2-15.2) % Magnesium 3.60 H (1.7-2.3) mg/dL Crossmatch See Detail 03/02/19 03/03/19 03/03/19 Range/Units 19:12 00:12 06:08 WBC (4.5-11.0) K/mm3 RBC (3.65-5.03) M/mm3 Hgb (10.1-14.3) gm/dl Hct (30.3-42.9) % MCH (28-32) pg RDW (13.2-15.2) % Magnesium 3.50 H 4.30 H 5.20 H (1.7-2.3) mg/dL Crossmatch 03/03/19 Range/Units 06:08 WBC (4.5-11.0) K/mm3 RBC (3.65-5.03) M/mm3 Hgb 8.5 L (10.1-14.3) gm/dl Hct 26.2 L (30.3-42.9) % MCH (28-32) pg RDW (13.2-15.2) % Magnesium (1.7-2.3) mg/dL Crossmatch
[2019-03-03] MEDS ORDERED: FLU VACC QUAD 2019-20 (3 YR UP)/PF 60 MCG/0.5 ML SYRINGE IM ONE (12:00)
[2019-03-03] MEDS ORDERED: TETANUS,DIPH,PERTUSS(ACELL) VACCINE 0.5 ML SYRINGE IM ONE (17:08)
[2019-03-04] MEDS: IBUPROFEN 800 MG TAB PO PRN ×2 (06:25→19:07)
[2019-03-04] MEDS: SIMETHICONE 80 MG CHEW TAB PO PRN (09:45)
[2019-03-04] MEDS: PRENATAL VIT27-FE FUMARATE-FOLIC ACID VIT TAB PO SCH (09:45)
[2019-03-04] MEDS: valACYclovir 500 MG TAB PO SCH (09:46)
--- NOTE | 2019-03-04 11:14 | Progress Note ---
Assessment and Plan - Patient Problems (1) delivery delivered Current Visit: Yes Status: Acute Plan to address problem: Doing well (2) Preeclampsia, severe Current Visit: Yes Status: Acute Qualifiers: Trimester: third trimester Qualified Code(s): O14.13 - Severe pre- eclampsia, third trimester Plan to address problem: Blood pressures acceptable on labetolol (3) BMI 45.0-49.9, adult Current Visit: Yes Status: Chronic Subjective - Subjective Date of service: 03/04/19 Principal diagnosis: IUP Di/Di twins @ 36w0d; s/p MGSO4 POD#2 Patient reports: appetite normal, voiding normally, pain well controlled, flatus, ambulating normally : doing well, nursing well Objective - Vital Signs Latest vital signs: Vital Signs Temp Pulse Resp BP BP Pulse Ox 03/04/19 09:47 81 133/71 03/04/19 08:00 98.6 F 100 H 16 132/77 97 03/04/19 05:42 98.3 F 100 H 20 133/71 98 03/04/19 01:22 97.9 F 101 H 18 130/70 97 03/03/19 21:01 88 20 133/74 97 03/03/19 19:57 111 H 98 03/03/19 19:52 105 H 97 03/03/19 19:47 99 H 98 03/03/19 19:42 104 H 100 03/03/19 19:37 90 99 03/03/19 19:33 110 H 158/81 03/03/19 19:32 102 H 99 03/03/19 19:27 95 H 158/81 99 03/03/19 19:21 94 H 99 03/03/19 19:16 104 H 98 03/03/19 19:14 62 89 03/03/19 19:11 88 98 03/03/19 19:06 94 H 98 03/03/19 19:01 102 H 99 03/03/19 18:56 90 163/77 99 03/03/19 18:55 98 H 94 03/03/19 18:51 91 H 96 03/03/19 18:46 96 H 98 03/03/19 18:41 94 H 98 03/03/19 18:36 93 H 98 03/03/19 18:31 89 98 03/03/19 18:26 97 H 97 03/03/19 18:25 93 H 146/72 03/03/19 18:21 89 99 03/03/19 18:19 99 H 91 03/03/19 18:16 95 H 99 03/03/19 18:11 96 H 99 03/03/19 18:06 98 H 98 03/03/19 18:01 115 H 100 03/03/19 17:56 93 H 99 03/03/19 17:55 95 H 143/75 03/03/19 17:51 93 H 99 03/03/19 17:46 101 H 99 03/03/19 17:41 96 H 99 03/03/19 17:36 103 H 99 03/03/19 17:31 99 H 99 03/03/19 17:28 92 H 154/73 03/03/19 17:26 91 H 166/74 99 03/03/19 17:21 121 H 99 03/03/19 17:16 80 99 03/03/19 17:11 88 99 03/03/19 17:06 94 H 98 03/03/19 17:02 85 151/69 03/03/19 17:01 91 H 99 03/03/19 16:56 89 99 03/03/19 16:54 99 H 164/77 03/03/19 16:51 96 H 100 03/03/19 16:46 119 H 99 03/03/19 16:41 109 H 98 03/03/19 16:36 110 H 99 03/03/19 16:31 111 H 98 03/03/19 16:26 106 H 99 03/03/19 16:25 102 H 165/82 03/03/19 16:21 107 H 98 03/03/19 16:16 102 H 99 03/03/19 16:11 104 H 98 03/03/19 16:06 95 H 98 03/03/19 16:04 99 F 16 03/03/19 16:01 91 H 99 03/03/19 15:56 99 H 146/74 98 03/03/19 15:51 109 H 98 03/03/19 15:46 103 H 98 03/03/19 15:41 101 H 98 03/03/19 15:36 104 H 99 03/03/19 15:31 105 H 99 03/03/19 15:26 103 H 98 03/03/19 15:25 96 H 173/81 03/03/19 15:21 100 H 99 03/03/19 15:16 94 H 98 03/03/19 15:11 96 H 98 03/03/19 15:06 115 H 98 03/03/19 15:01 97 H 99 03/03/19 14:56 107 H 98 03/03/19 14:55 107 H 156/73 03/03/19 14:51 100 H 98 03/03/19 14:46 99 H 98 03/03/19 14:41 131 H 98 03/03/19 14:36 109 H 97 03/03/19 14:31 100 H 98 03/03/19 14:26 103 H 98 03/03/19 14:25 110 H 150/84 03/03/19 14:21 104 H 98 03/03/19 14:16 106 H 97 03/03/19 14:11 102 H 98 03/03/19 14:06 94 H 98 03/03/19 14:01 103 H 98 03/03/19 13:56 98 H 158/75 98 03/03/19 13:51 103 H 98 03/03/19 13:46 105 H 98 03/03/19 13:41 96 H 99 03/03/19 13:38 91 H 93 03/03/19 13:36 93 H 98 03/03/19 13:31 88 98 03/03/19 13:26 95 H 96 03/03/19 13:25 99 H 150/77 03/03/19 13:21 95 H 97 03/03/19 13:16 88 98 03/03/19 13:11 90 98 03/03/19 13:06 91 H 98 03/03/19 13:01 102 H 97 03/03/19 12:56 90 158/79 98 03/03/19 12:51 103 H 98 03/03/19 12:46 102 H 98 03/03/19 12:41 101 H 98 03/03/19 12:39 95 H 153/83 03/03/19 12:36 95 H 99 03/03/19 12:35 97.6 F 16 03/03/19 12:32 93 H 159/80 03/03/19 12:31 89 99 03/03/19 12:26 81 99 03/03/19 12:25 86 161/79 03/03/19 12:21 83 100 03/03/19 12:16 109 H 98 03/03/19 12:11 96 H 158/77 100 03/03/19 12:06 98 H 98 03/03/19 12:01 108 H 99 03/03/19 11:56 96 H 164/95 98 03/03/19 11:51 91 H 99 03/03/19 11:46 107 H 99 03/03/19 11:41 84 98 03/03/19 11:36 96 H 99 03/03/19 11:31 94 H 98 03/03/19 11:26 93 H 100 03/03/19 11:25 93 H 150/85 03/03/19 11:21 96 H 99 03/03/19 11:16 94 H 99 03/03/19 11:11 94 H 99 Intake and Output 03/03/19 03/04/19 03/04/19 22:59 06:59 14:59 Intake Total 500 360 Output Total 2775 600 Balance -2275 360 -600 Intake: Oral 500 Intake, Free Water 360 Output: Urine 2775 600 Indwelling Catheter 1775 Void 1000 600 Other: Total, Intake Amount 500 Total, Output Amount 500 600 # Voids Void 1 - Exam Breasts: Present: deferred Cardiovascular: Present: Regular rate Lungs: Present: Normal air movement Abdomen: Present: normal appearance, soft, normal bowel sounds Uterus: Present: firm, fundal height below umbilicus Extremities: Present: edema Incision: Present: intact, other Comments: bandage some serosanguineius drainage - Labs Labs: Abnormal lab results 03/03/19 03/03/19 Range/Units 11:26 18:49 Magnesium 5.50 H 4.30 H (1.7-2.3) mg/dL
[2019-03-05] MEDS: PRENATAL VIT27-FE FUMARATE-FOLIC ACID VIT TAB PO SCH (09:22)
[2019-03-05] MEDS: valACYclovir 500 MG TAB PO SCH (09:22)
[2019-03-05] MEDS: SIMETHICONE 80 MG CHEW TAB PO PRN (09:23)
[2019-03-05] MEDS: IBUPROFEN 800 MG TAB PO PRN (09:24)
--- NOTE | 2019-03-05 10:57 | Discharge Summary ---
Providers - Providers Date of Admission: 03/01/19 16:22 Date of discharge: 03/05/19 (patient desires d/c home) Attending physician: KVNG RICHEY 03/02/19 16:50 Consult to Terrazzo Roller [CONS] Routine Reason For Exam: Primary care physician: KVNG RICHEY Hospitalization Reason for admission: IOL, pre-e, twins Condition: Good Pertinent studies: H&H 8.5/26.2 asymptomatic anemia due to acute blood loss Procedures: primary c/s Hospital course: delivery complicated by twin gestation and pre-e Disposition: DC-01 TO HOME OR SELFCARE - Discharge Diagnoses (1) delivery delivered Status: Acute (2) Preeclampsia, severe Status: Acute Qualifiers: Trimester: third trimester Qualified Code(s): O14.13 - Severe pre- eclampsia, third trimester Core Measure Documentation - Palliative Care Palliative Care/ Comfort Measures: Not Applicable - Core Measures Any of the following diagnoses?: none Exam - Constitutional Vitals: Temp Pulse Resp BP Pulse Ox 97.7 F 107 H 18 140/89 98 03/05/19 07:40 03/05/19 09:23 03/05/19 07:40 03/05/19 09:23 03/05/19 04:20 General appearance: Present: no acute distress, well-nourished - EENT Eyes: Present: PERRL ENT: hearing intact, clear oral mucosa - Neck Neck: Present: supple, normal ROM - Respiratory Respiratory effort: normal Respiratory: bilateral: CTA - Cardiovascular Heart Sounds: Present: S1 & S2. Absent: rub, click - Extremities Extremities: pulses symmetrical, No edema Peripheral Pulses: within normal limits - Abdominal General gastrointestinal: Present: soft, non-tender, non-distended, normal bowel sounds Female genitourinary: Present: normal - Integumentary Integumentary: Present: clear, warm, dry - Musculoskeletal Musculoskeletal: gait normal, strength equal bilaterally - Psychiatric Psychiatric: appropriate mood/affect, intact judgment & insight - Neurologic Neurologic: CNII-XII intact, moves all extremities - Additional findings Additional findings: breast engorged, incision D&I, lochia scant, fundus firm Plan Activity: advance as tolerated Diet: regular Wound: open to air, keep clean and dry Follow up with: KVNG RICHEY MD [Primary Care Provider] - 7 Days (Congratulations! Please call [phone] to schedule your incision check and the circumcisions for your sons. Bring EMLA cream to the visit for your sons and await instructions. Call for any questions or concerns.) Forms: Work/School Release Form Prescriptions: Lidocain2.5%/Prilocai2.5% [Emla] 5 gm TP ONCE #1 tube Ferrous Sulfate [Feosol 325 MG tab] 325 mg PO BID #90 tablet Ibuprofen [Motrin 800 MG tab] 800 mg PO TID PRN #30 tablet PRN Reason: Pain oxyCODONE /ACETAMINOPHEN [Percocet 5/325 mg] 1 - 2 tab PO Q4HR PRN #20 tablet PRN Reason: Pain
[2019-03-05 15:45] VITALS: BP 151/87
== END 2019-03-05 15:15 | disposition home or self-care (01) | DRG 787 ==
LOC: TRG 16:21 → LD 16:22 → OB 03-03 21:50
PROVIDERS: ADMIT Obstetrics & Gynecology; ATTEND Obstetrics & Gynecology
PROC: 10D00Z1 Extraction of Products of Conception, Low, Open Approach (ICD-10-PCS; principal; 2019-03-02)
PROC: 30233N1 Transfusion of Nonautologous Red Blood Cells into Peripheral Vein, Percutaneous Approach (ICD-10-PCS; 2019-03-02)
PROC: 3E0234Z Introduction of Serum, Toxoid and Vaccine into Muscle, Percutaneous Approach (ICD-10-PCS; 2019-03-03)
DX: O14.14 Severe pre-eclampsia complicating childbirth (principal); D62 Acute posthemorrhagic anemia; O98.32 Other infections with a predominantly sexual mode of transmission complicating childbirth; A60.04 Herpesviral vulvovaginitis; O99.02 Anemia complicating childbirth; O26.53 Maternal hypotension syndrome, third trimester; O13.4 Gestational [pregnancy-induced] hypertension without significant proteinuria, complicating childbirth; O99.214 Obesity complicating childbirth; O99.314 Alcohol use complicating childbirth; O32.9XX2 Maternal care for malpresentation of fetus, unspecified, fetus 2; O30.043 Twin pregnancy, dichorionic/diamniotic, third trimester; Z37.2 Twins, both liveborn; Z3A.35 35 weeks gestation of pregnancy; Z82.49 Family history of ischemic heart disease and other diseases of the circulatory system; Z79.82 Long term (current) use of aspirin; Z79.899 Other long term (current) drug therapy; Z23 Encounter for immunization
CPT/HCPCS: 36415; 76815; 80053; 81001; 82565; 82570; 82575; 83615; 83735; 84550; 85014; 85018; 85025; 85027; 86592; 86850; 86900; 86901; 86920; 88307; 90686; G0378; C1765; J0290; J0360; J0690; J0702; J1885; J2370; J2405; J2590; J2765; J3475; J7030; J7040; J7120; J7121; P9016

== ENCOUNTER 2019-03-15 07:51 | Outpatient (CLI) | payer BC, MEDICAID ==
[2019-03-15] MEDS ORDERED: LIDOCAINE (4%) 40 MG/ML TOPICAL SOLN 50 ML BOTTLE TP ONE (08:30)
== END 2019-03-15 07:52 | disposition home or self-care (01) ==
LOC: WOUND 07:51
PROVIDERS: ATTEND Surgery
DX: T81.89XA Other complications of procedures, not elsewhere classified, initial encounter (principal); Y83.8 Other surgical procedures as the cause of abnormal reaction of the patient, or of later complication, without mention of misadventure at the time of the procedure; Y92.89 Other specified places as the place of occurrence of the external cause
CPT/HCPCS: 99204; G0463

== ENCOUNTER 2019-03-18 13:19 | Outpatient (CLI) | payer BC, MEDICAID | END 2019-03-18 13:20 | disposition home or self-care (01) | LOC: WOUND 13:19 | PROVIDERS: ATTEND Surgery | DX: O90.0 Disruption of cesarean delivery wound (principal) | CPT/HCPCS: 99212; G0463 ==

== ENCOUNTER 2019-03-22 08:26 | Outpatient (CLI) | payer BC, MEDICAID ==
[2019-03-22] MEDS ORDERED: LIDOCAINE (4%) 40 MG/ML TOPICAL SOLN 50 ML BOTTLE TP ONE (09:00)
== END 2019-03-22 08:27 | disposition home or self-care (01) ==
LOC: WOUND 08:26
PROVIDERS: ATTEND Surgery
DX: T81.89XD Other complications of procedures, not elsewhere classified, subsequent encounter (principal); Y83.8 Other surgical procedures as the cause of abnormal reaction of the patient, or of later complication, without mention of misadventure at the time of the procedure
CPT/HCPCS: 97605

== ENCOUNTER 2019-03-25 10:20 | Outpatient (CLI) | payer BC, MEDICAID | END 2019-03-25 10:21 | disposition home or self-care (01) | LOC: WOUND 10:20 | PROVIDERS: ATTEND Surgery | DX: O90.0 Disruption of cesarean delivery wound (principal) | CPT/HCPCS: 97605 ==

== ENCOUNTER 2019-03-29 08:48 | Outpatient (CLI) | payer BC, MEDICAID ==
[2019-03-29] MEDS ORDERED: LIDOCAINE (4%) 40 MG/ML TOPICAL SOLN 50 ML BOTTLE TP ONE (10:00)
== END 2019-03-29 08:49 | disposition home or self-care (01) ==
LOC: WOUND 08:48
PROVIDERS: ATTEND Surgery
DX: O90.0 Disruption of cesarean delivery wound (principal)
CPT/HCPCS: 97605

== ENCOUNTER 2019-04-01 13:16 | Outpatient (CLI) | payer BC, MEDICAID | END 2019-04-01 13:17 | disposition home or self-care (01) | LOC: WOUND 13:16 | PROVIDERS: ATTEND Surgery | DX: O90.0 Disruption of cesarean delivery wound (principal) | CPT/HCPCS: 97605 ==

== ENCOUNTER 2019-04-12 08:25 | Outpatient (CLI) | payer BC, MEDICAID ==
[2019-04-12] MEDS ORDERED: LIDOCAINE (4%) 40 MG/ML TOPICAL SOLN 50 ML BOTTLE TP ONE (09:00)
[2019-04-12] MEDS ORDERED: SILVER NITRATE APPLICATOR 1 EA TP ONE (09:00)
== END 2019-04-12 08:26 | disposition home or self-care (01) ==
LOC: WOUND 08:25
PROVIDERS: ATTEND Surgery
DX: T81.89XD Other complications of procedures, not elsewhere classified, subsequent encounter (principal); Y83.8 Other surgical procedures as the cause of abnormal reaction of the patient, or of later complication, without mention of misadventure at the time of the procedure
CPT/HCPCS: 97605

== ENCOUNTER 2019-04-19 08:25 | Outpatient (CLI) | payer BC, MEDICAID ==
[2019-04-19] MEDS ORDERED: LIDOCAINE (4%) 40 MG/ML TOPICAL SOLN 50 ML BOTTLE TP ONE (09:00)
[2019-04-19] MEDS ORDERED: SILVER NITRATE APPLICATOR 1 EA TP ONE (09:30)
== END 2019-04-19 08:26 | disposition home or self-care (01) ==
LOC: WOUND 08:25
PROVIDERS: ATTEND Surgery
DX: T81.89XD Other complications of procedures, not elsewhere classified, subsequent encounter (principal); Y83.8 Other surgical procedures as the cause of abnormal reaction of the patient, or of later complication, without mention of misadventure at the time of the procedure

== ENCOUNTER 2019-04-26 08:15 | Outpatient (CLI) | payer BC, MEDICAID ==
[2019-04-26] MEDS ORDERED: SILVER NITRATE APPLICATOR 1 EA TP ONE (09:00)
[2019-04-26] MEDS ORDERED: LIDOCAINE (4%) 40 MG/ML TOPICAL SOLN 50 ML BOTTLE TP ONE (09:00)
== END 2019-04-26 08:16 | disposition home or self-care (01) ==
LOC: WOUND 08:15
PROVIDERS: ATTEND Surgery
DX: T81.89XD Other complications of procedures, not elsewhere classified, subsequent encounter (principal); Y83.8 Other surgical procedures as the cause of abnormal reaction of the patient, or of later complication, without mention of misadventure at the time of the procedure

== ENCOUNTER 2019-05-03 08:28 | Outpatient (CLI) | payer BC, MEDICAID ==
[2019-05-03] MEDS ORDERED: LIDOCAINE (4%) 40 MG/ML TOPICAL SOLN 50 ML BOTTLE TP ONE (09:00)
== END 2019-05-03 08:29 | disposition home or self-care (01) ==
LOC: WOUND 08:28
PROVIDERS: ATTEND Surgery
DX: T81.89XD Other complications of procedures, not elsewhere classified, subsequent encounter (principal); Y83.8 Other surgical procedures as the cause of abnormal reaction of the patient, or of later complication, without mention of misadventure at the time of the procedure
CPT/HCPCS: 99213; G0463